=== PATIENT | female | born 1980 | race Caucasian/White ===

== ENCOUNTER 2019-04-04 21:45 | Emergency (ER) | payer OTHER ==
[~2019-04-04] VITALS: Ht 170.2 cm; Wt 70.3 kg
--- NOTE | 2019-04-04 22:09 | NUR ---
JUVENAL FROM HOME WITH . TO ER BED 16, AAOX4. NO RESP DISTRESS NOTED. AMBULATORY. C/O NAUSEA SINCE NOON. PT REPORTS THAT SHE JUST FOUND OUT LAST WEEK THAT SHE IS VIA TEST. PT REPORTS THAT SHE HAVENT SEEN AN OB BUT HAVE AN APPOINTMENT TOMORROW. PT ALSO REPORTS THAT BECAUSE OF THE NAUSEA AND VOMMITING SHE CANT KEEP FLUIDS DOWN. SHE ALSO REPORTS THAT SHE HAD A VAGINAL SPOTTING ON MONDAY BUT NO FURTHER EPISODE SINCE THAT INCIDENT. AT BEDSIDE FOR EVAL. AWAITING ORDERS
--- NOTE | 2019-04-04 22:26 | NUR ---
IV LINE OBTAINED ON R AC 20G. 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
[2019-04-04 22:27] LABS: APPEARANCE,URINE Slightly Cloudy (CLEAR); BILIRUBIN,URINE Negative (NEGATIVE); BLOOD, URINE Negative Ery/uL (NEGATIVE); COLOR,URINE Yellow (YELLOW); KETONES,URINE 80 (NEGATIVE); LEUKOCYTE ESTERASE ,URINE Trace (NEGATIVE); NITRITE, URINE Negative (NEGATIVE); PH,URINE 5.5 (5.0-8.0); PROTEIN,URINE 30 mg/dl (NEGATIVE); UGLUCOSE Negative (NEGATIVE); UROBILINOGEN,URINE 0.2 EU/dL (0.2)
[2019-04-04] MEDS ORDERED: METOCLOPRAMIDE HCL 10 MG/2 ML VIAL ONE (22:28)
[2019-04-04] MEDS ORDERED: diphenhydrAMINE HCL 50 MG/ML VIAL ONE (22:28)
[2019-04-04] MEDS ORDERED: METOCLOPRAMIDE HCL 10 MG/2 ML VIAL IV ONE (22:30)
[2019-04-04] MEDS ORDERED: IV NS 0.9% 1,000 ML BAG IV ONE (22:30)
[2019-04-04] MEDS ORDERED: diphenhydrAMINE HCL 50 MG/ML VIAL IV ONE (22:30)
[2019-04-04 22:31] LABS: BASOPHILS % (AUTO) 0.2 % (0.0-2.0); EOSINOPHILS % (AUTO) 0.1 % (0.0-6.0); HEMATOCRIT 43 % (33-45); HEMOGLOBIN 14.2 g/dL (11.5-14.8); LYMPHOCYTES % (AUTO) 7.1 % (20.0-44.0); MEAN CORPUSCULAR HGB CONC 33 g/dl (31.0-36.0); MEAN CORPUSCULAR VOLUME 94 fL (82-100); MONOCYTES # (AUTO) 0.5 /CMM (0.1-1.30); MONOCYTES % (AUTO) 3.7 % (2.0-12.0); NEUTROPHILS # (AUTO) 12.9 /CMM (1.8-8.9); NEUTROPHILS % (AUTO) 88.9 % (43.0-81.0); PLATELET COUNT (AUTO) 308 /CMM (150-450); RED BLOOD CELL COUNT(AUTO) 4.52 MIL/uL (4.0-5.2); WHITE BLOOD COUNT (AUTO) 14.5 K/uL (4.3-11.0)
[2019-04-04 22:39] LABS: BACTERIA,URINE Few /HPF (None Seen); MUCUS,URINE Few /LPF (None Seen); RBC,URINE 0-2 /HPF (0-2); SQUAMOUS EPITHELIAL CELL,UR MANY /HPF (None Seen)
[2019-04-04 22:40] LABS: CALCIUM, SERUM 9.4 mg/dL (8.5-10.1); CREATININE 0.6 mg/dL (0.6-1.3); POTASSIUM 4.1 mmol/L (3.5-5.1)
--- NOTE | 2019-04-04 23:52 | NUR ---
Patient discharged to home in stable condition. Written and verbal after care instructions given. Patient verbalizes understanding of instruction.IV removed. Catheter intact and site benign. Pressure and 4x4 applied to site. No bleeding noted. Pt ambulatory with a steady gait
[2019-04-04 23:53] VITALS: BP 126/68
== END 2019-04-04 23:53 | disposition home or self-care (01) ==
LOC: ER 21:51
DX: O20.0 Threatened abortion (principal); O21.9 Vomiting of pregnancy, unspecified; F10.10 Alcohol abuse, uncomplicated; E86.0 Dehydration; Y90.9 Presence of alcohol in blood, level not specified; Z32.01 Encounter for pregnancy test, result positive
CPT/HCPCS: 36415; 76805; 80048; 81001; 84702; 85025; 96361; 96374; 96375; 99284; J1200; J2765; J7030; 81000-TC; 87086-TC